=== PATIENT | female | born 1935 | race Caucasian/White ===

== ENCOUNTER 2025-06-02 09:43 | Day surgery (SDC) | payer MEDICARE, OTHER, SELFPAY ==
[2025-06-02 10:44] VITALS: BP 170/96; PULSE 78; RESP 18; TEMP 36.7; O2SAT 96
[2025-06-02] MEDS: LACTATED RINGERS 1,000 ML 42 ML IV (10:51)
--- NOTE | 2025-06-02 11:24 | PM.HP.IH.1 ---
History of Present Illness History of Present Illness Date Patient Seen: 06/02/25 Time Patient Seen: 11:24 Chief complaint: EGD w/poss bx Narrative: Erin is an 89 year old woman with dysphagia and a family history upper GI malignancy. See the April office note for details. [facility] Medical History (Updated 05/11/25 @ 21:35 by Anjali Whalen MD) Vaginal atrophy Cystocele with prolapse Hx of fracture of tibia Macular degeneration Gallstones HTN (hypertension) Memory change Prolapse of female genital organs Incontinence GERD (gastroesophageal reflux disease) Family history- stomach cancer History of bacterial enteritis Surgical History (Updated 03/20/25 @ 18:42 by Anjali Whalen MD) Status post hysterectomy S/P cataract extraction Social History Smoking Status: Never smoker alcohol intake: former additional social history: PMHX: + reflux intestinal infection leaky gut and boils. sometimes get very sick recurrent UTIS- urination all the time-incontinence. HTN -- comes and goes Mac Deg stress bladder hangs down gallstones present 2024 PSHX: cataracts HYST - -- no reason per pt OI: lives with son and his family safe: yes no tob no etoh no other substances exercise: [place] -- cannot go up the hill wants to walk more eats veggies -- but less when she is having GI symptoms drinks ensure at night. last leg xray: 2 yrs ago-fracture of leg 2 years ago 03/2025 Meds Home Medications and Allergies Home Medications ?Medication ?Instructions ?Recorded ?Confirmed ?Type famotidine 20 mg tablet (Pepcid AC) 20 mg PO DAILY 05/02/25 06/02/25 History Allergies Allergy/AdvReac Type Severity Reaction Status Date / Time cimetidine (From Tagamet) AdvReac Severe Swelling Verified 06/02/25 10:38 of the Eye Exam Vital Signs (past 8 hours): - 06/02/25 10:44 Temperature 98.1 F Pulse Rate 78 Respiratory Rate 18 Blood Pressure 170/96 H Pulse Oximetry 96 Oxygen Delivery Method Room Air Oxygen Delivery Method Room Air Const General: No acute distress Assessment & Plan Assessment and plan (1) Dysphagia: Qualifiers: Dysphagia type: unspecified Qualified Code(s): R13.10 - Dysphagia, unspecified Status: Acute Plan EGD Time-Based Coding :: [TOTAL MINUTES] spent with patient and on the chart (including review of chart, obtaining history, exam, reviewing outside data, placing orders, documenting exam and treatment plan, and counseling patient) on [DATE]. 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
--- NOTE | 2025-06-02 11:51 | PM.OP.EGD ---
Operative Date/Time/Diagnoses Date of procedure: 06/02/25 Time of procedure: 11:51 Pre-op diagnosis: Dysphagia Post-op diagnosis: same Procedure & Clinicians Study performed: Esophagogastroduodenoscopy Same procedure(s) as scheduled: Yes Surgeon: Jose Jack Anesthesia Type: MAC +/- Procedure Notes Procedure in detail: Surgeon: Jose Jack MD Anesthesia: Michael Dorman MD A timeout was performed. A bite blocked was placed. The patient was positioned in the left lateral decubitus position. Anesthesia was administered. The endoscope was inserted through the bite block and passed through the esophagus and stomach and into the duodenum. The duodenal mucosa appeared normal. The scope was withdrawn into the duodenal bulb and no abnormalities were seen. The scope was withdrawn into the stomach. No abnormalities were seen in the stomach. The rest of the stomach was normal. The scope was retroflexed and no hiatal hernia was noted. The scope was withdrawn into the esophagus and no gross abnormalities were seen in the esophagus. The scope was withdrawn. The patient was awakened and brought to recovery. Sedation time: 2 minutes Findings: Normal esophagus, stomach and duodenum Estimated Blood Loss: 0 Complications: none Post-procedure Disposition: PACU
[2025-06-02 12:10] VITALS: BP 134/63; PULSE 73; RESP 16; TEMP 36.2; O2SAT 94
[2025-06-02 12:15] VITALS: BP 134/74; PULSE 75; RESP 16; O2SAT 94
[2025-06-02 12:20] VITALS: BP 132/76; PULSE 82; RESP 16; O2SAT 95
== END 2025-06-02 12:36 | disposition home or self-care (01) ==
PROVIDERS: PCP Family Medicine; Referring Provider Surgery; Visit Provider Surgery
PROC: 0DJ08ZZ Inspection of Upper Intestinal Tract, Via Natural or Artificial Opening Endoscopic (ICD-10-PCS; CPT 43235; principal; 2025-06-02 11:30)
DX: R13.10 Dysphagia, unspecified (principal); K21.9 Gastro-esophageal reflux disease without esophagitis; Z80.0 Family history of malignant neoplasm of digestive organs
CPT/HCPCS: 43235; J2704; J3010; J7120

== ENCOUNTER 2025-06-19 20:58 | Emergency (ER) | payer MEDICARE, OTHER, SELFPAY ==
[2025-06-19] VITALS (8 sets, daily range): BP systolic 136–196; BP diastolic 68–90; PULSE 79–103; RESP 16–24; TEMP 36.6; O2SAT 92–96; BMI 29.1
--- NOTE | 2025-06-19 21:06 | EKG_ITS ---
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
--- NOTE | 2025-06-19 21:17 | DI.CT.S_ITS ---
PROCEDURE: CT ANGIO CHEST PE PROTOCOL INDICATIONS: chest/abd pain x6d, started L wraps to R side/front/back TECHNIQUE: After the administration of intravenous contrast, 2 mm thick sections acquired from the pulmonary apices to the posterior costophrenic angles. 3-dimensional maximum intensity projection (MIP) coronal and sagittal reformats were then acquired through the thorax. For radiation dose reduction, the following was used: automated exposure control, adjustment of mA and/or kV according to patient size. COMPARISON: None. FINDINGS: Image quality: Diagnostic. Pulmonary arteries: Pulmonary arteries are normal in size, and demonstrate no intraluminal filling defects to suggest central pulmonary embolism. Lower Neck: No enlarged lymph nodes. Thyroid: Asymmetrically enlarged right thyroid gland with multiple nodules. Largest nodule on the right measures 3.1 cm Axillae: No enlarged lymph nodes. Chest Wall: Unremarkable. Bones: Unremarkable. Lungs and Pleura: No pneumothorax or pleural effusions. No consolidation. Smoothly marginated triangular-shaped subpleural nodule in the left lower lobe measuring up to 10 mm (5/152, MIP image 79) most consistent with a sub fissural lymph node.. Heart: Heart size is normal. No pericardial effusion. Thoracic Vessels: No aortic aneurysm. Mediastinum and Annabelle: No enlarged lymph nodes. Esophagus: No wall thickening. No hiatal hernia. Upper Abdomen: Visualized upper abdomen solid organs and bowel loops appear normal. IMPRESSION: No pulmonary embolus. No acute cardiopulmonary process. Right thyroid gland nodules measuring up to 3.1 cm. Recommend further evaluation with nonemergent thyroid ultrasound if not performed recently. Approved by: Regina Irvin M.D.,Ph.D. on 06/19/2025 at 23:59
--- NOTE | 2025-06-19 21:17 | DI.CT.S_ITS ---
PROCEDURE: CT ABDOMEN PELVIS W CON INDICATIONS: chest/abd pain x6d, started L wraps to R side/front/back TECHNIQUE: After the administration of intravenous contrast, axial sections acquired from the lung bases to the pubic symphysis. Coronal and sagittal reformats were performed. For radiation dose reduction, the following was used: automated exposure control, adjustment of mA and/or kV according to patient size. COMPARISON: None. FINDINGS: Image quality: Diagnostic. Lower Chest: No significant findings. ABDOMEN: Liver: No solid mass. Liver cysts. Gallbladder: Cholelithiasis. Questionable trace pericholecystic fluid near the gallbladder neck. No significant wall thickening. Biliary ducts: No biliary dilation. Pancreas: No ductal dilation. Spleen: Size is within normal limits. Adrenal Glands: No adrenal nodules. Kidneys and Ureters: No hydronephrosis. No solid mass. No complex renal cystic lesion which requires follow up. Stomach and Bowel: Normal colonic caliber, without significant wall thickening. Normal caliber appendix. Sigmoid diverticulosis without acute inflammation. Peritoneum: No abnormal intraperitoneal fluid. No free air. Ventral Wall: No significant ventral hernia. Abdominal Nodes: No retroperitoneal or mesenteric adenopathy by size criteria. Vessels: Aorta and inferior vena cava are normal in size. PELVIS: Pelvic Organs: Surgically absent. Bladder: Cystocele. No bladder wall thickening, accounting for underdistention. Pelvic Nodes: No enlarged lymph nodes. Miscellaneous: No inguinal hernias are seen. Bones: No aggressive osseous abnormality. IMPRESSION: Cholelithiasis with possible trace fluid near the gallbladder neck. No significant wall thickening. If there is clinical concern for acute cholecystitis, consider further evaluation with ultrasound. Sigmoid diverticulosis without CT evidence of acute diverticulitis. Cystocele. Approved by: Regina Irvin M.D.,Ph.D. on 06/19/2025 at 23:39
--- NOTE | 2025-06-19 21:18 | ED.CHESTPAIN ---
HPI - Chest Pain <Anne Rockwell DO - Last Filed: 06/20/25 16:02> General Chief Complaint: Chest Pain Stated Complaint: pc ref abd/back pain x 6 days n/v Time Seen by Provider: 06/19/25 21:16 Source: patient, family, RN notes reviewed, old records reviewed and other (Note from Anjali Whalen) Mode of arrival: Ambulatory Limitations: no limitations History of Present Illness HPI narrative: 89-year-old female history of GERD who presents with complaint of discomfort of her chest and abdomen that is started 6 days ago with some nausea and vomiting. She states it started on her left side lower chest upper abdomen and she states it is a wrapped around to the other side on the right. She states that is sort of intermittent she seems like it is a little bit worse with food. She denies any fevers or chills. She states nausea or vomiting has been intermittent but she has not been eating anything for the past day. She denies any diarrhea or constipation currently but states she has a little bit constipated initially. She has noticed some dysuria, urgency and frequency and has a negative urinalysis which she presents with the results here in the department today. She denies any black or bloody stools. Patient states she has had a prior hysterectomy. She states she takes Pepcid and a probiotic daily she has had prior eye surgery and a hysterectomy. She denies tobacco, alcohol or recreational drugs. Her primary care is on [facility]. PCP is Anjali Whalen. She presents with her son at bedside. Related Data Home Medications ?Medication ?Instructions ?Recorded ?Confirmed famotidine 20 mg tablet (Pepcid AC) 20 mg PO DAILY 05/02/25 06/19/25 Allergies Allergy/AdvReac Type Severity Reaction Status Date / Time cimetidine (From Tagamet) AdvReac Severe Swelling Verified 06/19/25 21:07 of the Eye Review of Systems <Anne Rockwell DO - Last Filed: 06/20/25 16:02> Review of Systems ROS Unobtainable: All systems reviewed & are unremarkable except as noted in HPI and below Patient History <Anne Rockwell DO - Last Filed: 06/20/25 16:02> Medical History (Updated 06/20/25 @ 00:43 by Brady Hernandez MD) Vaginal atrophy Cystocele with prolapse Hx of fracture of tibia Macular degeneration Gallstones HTN (hypertension) Memory change Prolapse of female genital organs GERD (gastroesophageal reflux disease) Family history- stomach cancer Surgical History Status post hysterectomy S/P cataract extraction Social History Smoking Status: Never smoker alcohol intake: former additional social history: PMHX: + reflux intestinal infection leaky gut and boils. sometimes get very sick recurrent UTIS- urination all the time-incontinence. HTN -- comes and goes Mac Deg stress bladder hangs down gallstones present 2024 PSHX: cataracts HYST - -- no reason per pt OI: lives with son and his family safe: yes no tob no etoh no other substances [place]: [place] -- cannot go up the hill wants to walk more eats veggies -- but less when she is having GI symptoms drinks ensure at night. last leg xray: 2 yrs ago-fracture of leg 2 years ago 03/2025 Smoking Status: Never smoker Exam <Anne Rockwell DO - Last Filed: 06/20/25 16:02> Narrative Exam Narrative: GENERAL: Alert and oriented x three, elderly female in mild distress HEENT: Head normocephalic, atraumatic, EOMI, pupils reactive, face symmetric, moist mucous membranes NECK: Supple, full range of motion CARDIOVASCULAR: Regular rate and rhythm without murmurs, rubs or gallops. No JVD. No edema bilateral lower extremities. RESPIRATORY: Breath sounds equal bilaterally, no wheezes rales or rhonchi. No tachypnea. ABDOMEN: Soft, nontender. Normoactive bowel sounds all 4 quadrants. No guarding or rebound, rigidity, no mass, no pulsatile mass or bruit : No CVA tenderness EXTREMITIES: Normal range of motion, no clubbing or edema. 2+ pulses bilateral lower extremities. Neurovascularly intact NEUROLOGICAL: Cranial nerves II through XII grossly intact. Moving all extremities SKIN: Warm, dry, no petechiae, no rashes or lesions. Initial Vital Signs Initial Vital Signs: Vital Signs Temperature 98 F 06/19/25 21:06 Pulse Rate 103 H 06/19/25 21:06 Respiratory Rate 16 11/17/25 21:06 Blood Pressure 136/68 06/19/25 21:06 Pulse Oximetry 96 06/19/25 21:06 Oxygen Delivery Method Room Air 06/19/25 21:06 <Brady Hernandez MD - Last Filed: 06/20/25 02:26> Initial Vital Signs Initial Vital Signs: Vital Signs Temperature 98 F 06/19/25 21:06 Pulse Rate 103 H 06/19/25 21:06 Respiratory Rate 16 06/19/25 21:06 Blood Pressure 136/68 06/19/25 21:06 Pulse Oximetry 96 06/19/25 21:06 Oxygen Delivery Method Room Air 06/19/25 21:06 Course <Anne Rockwell DO - Last Filed: 06/20/25 16:02> Orders Ordered: Discontinued Medications Aspirin (Aspirin 81 Mg Chew Tab) 324 mg PO NOW ONE Stop: 06/19/25 21:06 Last Admin: 06/19/25 21:58 Dose: Not Given Documented By: BUSHRA Sodium Chloride (Normal Saline 0.9%) 500 mls @ 1,000 mls/hr IV BOLUS ONE Stop: 06/19/25 21:47 Last Infusion: 06/19/25 23:02 Dose: Infused Documented By: Admin: 06/19/25 21:40 Dose: 1,000 mls/hr Documented By: REGINO Ondansetron HCl (Ondansetron 4 Mg/2 Ml Inj) 4 mg IV NOW ONE Stop: 06/19/25 21:18 Vital Signs Vital signs: Vital Signs - 8 hr 06/19/25 21:06 06/19/25 21:30 06/19/25 21:30 Temperature 98 F Pulse Rate 103 H 91 H Respiratory Rate 16 21 Blood Pressure 136/68 190/90 H Pulse Oximetry 96 93 Oxygen Delivery Method Room Air 06/19/25 22:00 06/19/25 22:09 06/19/25 22:09 Temperature Pulse Rate 83 83 Respiratory Rate 22 23 Blood Pressure 177/85 H Pulse Oximetry 92 92 Oxygen Delivery Method 06/19/25 22:30 06/19/25 23:00 06/19/25 23:03 Temperature Pulse Rate 80 79 81 Respiratory Rate 17 18 24 Blood Pressure Pulse Oximetry 92 96 94 Oxygen Delivery Method 06/19/25 23:03 06/19/25 23:30 06/20/25 00:00 Temperature Pulse Rate 84 84 Respiratory Rate 24 18 Blood Pressure 196/86 H Pulse Oximetry 92 92 Oxygen Delivery Method 06/20/25 00:01 06/20/25 00:01 06/20/25 00:30 Temperature Pulse Rate 84 80 Respiratory Rate 16 20 Blood Pressure 184/90 H Pulse Oximetry 92 92 Oxygen Delivery Method <Brady Hernandez MD - Last Filed: 06/20/25 02:26> Orders Ordered: Discontinued Medications Aspirin (Aspirin 81 Mg Chew Tab) 324 mg PO NOW ONE Stop: 06/19/25 21:06 Last Admin: 06/19/25 21:58 Dose: Not Given Documented By: BUSHRA Sodium Chloride (Normal Saline 0.9%) 500 mls @ 1,000 mls/hr IV BOLUS ONE Stop: 06/19/25 21:47 Last Infusion: 06/19/25 23:02 Dose: Infused Documented By: Admin: 06/19/25 21:40 Dose: 1,000 mls/hr Documented By: REGINO Ondansetron HCl (Ondansetron 4 Mg/2 Ml Inj) 4 mg IV NOW ONE Stop: 06/19/25 21:18 Vital Signs Vital signs: Vital Signs - 8 hr 06/19/25 21:06 06/19/25 21:30 06/19/25 21:30 Temperature 98 F Pulse Rate 103 H 91 H Respiratory Rate 16 21 Blood Pressure 136/68 190/90 H Pulse Oximetry 96 93 Oxygen Delivery Method Room Air 06/19/25 22:00 06/19/25 22:09 06/19/25 22:09 Temperature Pulse Rate 83 83 Respiratory Rate 22 23 Blood Pressure 177/85 H Pulse Oximetry 92 92 Oxygen Delivery Method 06/19/25 22:30 06/19/25 23:00 06/19/25 23:03 Temperature Pulse Rate 80 79 81 Respiratory Rate 17 18 24 Blood Pressure Pulse Oximetry 92 96 94 Oxygen Delivery Method 06/19/25 23:03 06/19/25 23:30 06/20/25 00:00 Temperature Pulse Rate 84 84 Respiratory Rate 24 18 Blood Pressure 196/86 H Pulse Oximetry 92 92 Oxygen Delivery Method 06/20/25 00:01 06/20/25 00:01 06/20/25 00:30 Temperature Pulse Rate 84 80 Respiratory Rate 16 20 Blood Pressure 184/90 H Pulse Oximetry 92 92 Oxygen Delivery Method MDM - Chest Pain <Anne Rockwell, - Last Filed: 06/20/25 16:02> Lab Data 06/19/25 22:00 06/19/25 22:00 Labs: Lab Results 06/19/25 Range/Units 22:00 WBC 7.9 (4.5-11.0) X10^3/uL RBC 4.73 (4.0-5.2) X10^6/uL Hgb 13.2 (12.0-16.0) g/dL Hct 39.5 (36-46) % MCV 83.6 (80-100) fL MCH 28.0 (26-34) PG MCHC 33.5 (30-36) % RDW 13.6 (11.6-14.8) % Plt Count 230 (150-400) X10^3/uL Neut % (Auto) 69.1 (50-75) % Lymph % (Auto) 19.4 L (25-40) % [place] % (Auto) 10.0 (3-14) % Eos % (Auto) 1.0 L (2-4) % Baso % (Auto) 0.5 (0-2) % Neut # (Auto) 5500 (2005-2755) /uL Lymph # (Auto) 1500 (9262-6208) /uL [place] # (Auto) 800 (0-900) /uL Eos # (Auto) 100 (0-450) /uL Baso # (Auto) 0 (0-100) /uL PT 13.0 H (9.4-12.5) SECONDS INR 1.1 (0.9-1.3) APTT 36 (25.1-36.5) SECONDS Sodium 139 (137-145) mmol/L Potassium 3.6 (3.4-5.1) mmol/L Chloride 104 (98-107) mmol/L Carbon Dioxide 23 (22-32) mmol/L BUN 13 (7-17) mg/dL Creatinine 0.59 (0.52-1.04) mg/dL Estimated GFR > 60 (>60) mL/min BUN/Creatinine Ratio 22.0 (6-22) Glucose 98 (70-99) mg/dL Calcium 9.1 (8.4-10.2) mg/dL Magnesium 1.9 (1.6-2.3) mg/dL Total Bilirubin 0.5 (0.2-1.3) mg/dL AST 24 (14-36) IU/L ALT 17 (<35) IU/L Alkaline Phosphatase 99 (38-126) U/L Total Creatine Kinase 42 (30-135) U/L Troponin I < 0.012 (0.01-0.034) ng/mL NT-Pro-B Natriuret Pep 105 (<450) pg/mL Total Protein 7.8 (6.3-8.2) g/dL Albumin 4.4 (3.5-5.0) g/dL Globulin 3.4 (1.7-4.1) g/dL Albumin/Globulin Ratio 1.3 (1.0-2.8) Lipase 23 (23-300) U/L MDM Narrative Medical decision making narrative: EKG shows sinus tachycardia rate of 102 MI 170 QRS 80 QTC of [address]-elevation depression noted. No prior in EMR for comparison. Labs show normal white count, hemoglobin and platelets, INR is normal, electrolytes BUN and creatinine are normal troponins less than 0.012 with a BNP of 105, lipase is 23 Urinalysis from [address] abdomen pelvis CT chest PE protocol Patient received Zofran and fluids <Brady Hernandez MD - Last Filed: 06/20/25 02:26> Lab Data Labs: Lab Results 06/19/25 Range/Units 22:00 WBC 7.9 (4.5-11.0) X10^3/uL RBC 4.73 (4.0-5.2) X10^6/uL Hgb 13.2 (12.0-16.0) g/dL Hct 39.5 (36-46) % MCV 83.6 (80-100) fL MCH 28.0 (26-34) PG MCHC 33.5 (30-36) % RDW 13.6 (11.6-14.8) % Plt Count 230 (150-400) X10^3/uL Neut % (Auto) 69.1 (50-75) % Lymph % (Auto) 19.4 L (25-40) % [place] % (Auto) 10.0 (3-14) % Eos % (Auto) 1.0 L (2-4) % Baso % (Auto) 0.5 (0-2) % Neut # (Auto) 5500 (5689-0118) /uL Lymph # (Auto) 1500 (1524-3210) /uL [place] # (Auto) 800 (0-900) /uL Eos # (Auto) 100 (0-450) /uL Baso # (Auto) 0 (0-100) /uL PT 13.0 H (9.4-12.5) SECONDS INR 1.1 (0.9-1.3) APTT 36 (25.1-36.5) SECONDS Sodium 139 (137-145) mmol/L Potassium 3.6 (3.4-5.1) mmol/L Chloride 104 (98-107) mmol/L Carbon Dioxide 23 (22-32) mmol/L BUN 13 (7-17) mg/dL Creatinine 0.59 (0.52-1.04) mg/dL Estimated GFR > 60 (>60) mL/min BUN/Creatinine Ratio 22.0 (6-22) Glucose 98 (70-99) mg/dL Calcium 9.1 (8.4-10.2) mg/dL Magnesium 1.9 (1.6-2.3) mg/dL Total Bilirubin 0.5 (0.2-1.3) mg/dL AST 24 (14-36) IU/L ALT 17 (<35) IU/L Alkaline Phosphatase 99 (38-126) U/L Total Creatine Kinase 42 (30-135) U/L Troponin I < 0.012 (0.01-0.034) ng/mL NT-Pro-B Natriuret Pep 105 (<450) pg/mL Total Protein 7.8 (6.3-8.2) g/dL Albumin 4.4 (3.5-5.0) g/dL Globulin 3.4 (1.7-4.1) g/dL Albumin/Globulin Ratio 1.3 (1.0-2.8) Lipase 23 (23-300) U/L Imaging Data CT scan - abdomen/pelvis: Radiologist's Impression: IMPRESSION: Cholelithiasis with possible trace fluid near the gallbladder neck. No significant wall thickening. If there is clinical concern for acute cholecystitis, consider further evaluation with ultrasound. Sigmoid diverticulosis without CT evidence of acute diverticulitis. Cystocele. MDM Narrative Medical decision making narrative: EKG shows sinus tachycardia rate of 102 MI 170 QRS 80 QTC of [address]-elevation depression noted. No prior in EMR for comparison. Labs show normal white count, hemoglobin and platelets, INR is normal, electrolytes BUN and creatinine are normal troponins less than 0.012 with a BNP of 105, lipase is 23 Urinalysis from [address] abdomen pelvis CT chest PE protocol Patient received Zofran and fluids 23:00 Patient care transferred to [place] at the change of shift by Dr. Garcia with CTA chest and CT abdomen and pelvis pending. This is a 89-year-old female patient with a history of hypertension, GERD and bladder and/or cervical prolapse who presents with left-sided lower chest and left upper quadrant abdominal pain waxing and waning for 6 days with a few episodes of nausea and vomiting. Decreased appetite. No fever or chills. To this point she has had CBC and chemistry panel which are unremarkable. Urinalysis done earlier today was negative. She has had CTA chest and CT abdomen and pelvis which are not yet read. 00:40 Patient's CTA chest and CT abdomen and pelvis are negative not explaining her pain. Lab work is negative. There was some concern about her gallstones but she has no elevated white count or lab work in regard to her gallbladder. On my history and exam this appears to be a neuropathic pain. It was a burning pain across her lower chest and back and upper quadrant. However, no rash suggestive of zoster. Patient is to monitor symptoms and follow up with her doctor as needed. Return to the ER if worse. Discharge Plan Departure Patient Disposition: Home Clinical Impression: Atypical chest pain, Left upper quadrant pain Instructions: Acute Abdominal Pain, DI for Atypical Chest Pain Activity Restrictions/Additional Instructions: Assessment: Left chest and upper quadrant pain with negative lab work and imaging. Does not appear to be surgical or cardiac. Also not pulmonary. Possible neuropathic pain. Plan: Hydration, rest and monitor symptoms. Follow up with your doctor for reassessment if not resolving. Return to the ER if worse Prescriptions: No Action famotidine [Pepcid AC] 20 mg tablet 20 mg PO DAILY Referrals: Anjali Whalen MD [Primary Care Provider, Family Practice] Stand Alone Forms: Patient Portal/API
[2025-06-19] MEDS: SODIUM CHLORIDE 0.9% 500 ML 1000 ML IV (21:40)
[2025-06-19 22:18] LABS: Add Manual Diff / Slide Review NO; Hematocrit 39.5 % (36-46); Hemoglobin 13.2 g/dL (12.0-16.0); Lymphocytes Absolute Auto 1500 /uL (1100-4500); Mean Corpuscular HGB Conc 33.5 % (30-36); Mean Corpuscular Hemoglobin 28.0 PG (26-34); Mean Corpuscular Volume 83.6 fL (80-100); Platelet Count 230 X10^3/uL (150-400)
[2025-06-19 22:24] LABS: INR 1.1 (0.9-1.3); Prothrombin Time 13.0 SECONDS (9.4-12.5)
[2025-06-19 22:26] LABS: PTT Partial Thromboplastin Tim 36 SECONDS (25.1-36.5)
[2025-06-19 22:29] LABS: Alanine Aminotransferase 17 IU/L (<35); Albumin 4.4 g/dL (3.5-5.0); Albumin Globulin Ratio 1.3 (1.0-2.8); Alkaline Phosphatase 99 U/L (38-126); Blood Urea Nitrogen 13 mg/dL (7-17); Calcium 9.1 mg/dL (8.4-10.2); Carbon Dioxide 23 mmol/L (22-32); Chloride 104 mmol/L (98-107); Creatine Kinase 42 U/L (30-135); Estimated Glomerular Filt Rate > 60 mL/min (>60); Globulin 3.4 g/dL (1.7-4.1); Glucose 98 mg/dL (70-99); HEMOLYSIS < 15 (0-50); Lipase 23 U/L (23-300); Magnesium 1.9 mg/dL (1.6-2.3); Potassium 3.6 mmol/L (3.4-5.1); Sodium 139 mmol/L (137-145); Total Protein 7.8 g/dL (6.3-8.2)
[2025-06-19 22:40] LABS: NT-proBNP (BNP-Adult 18+) 105 pg/mL (<450); Troponin I < 0.012 ng/mL (0.01-0.034)
[2025-06-20] VITALS: PULSE 84; RESP 18; O2SAT 92
[2025-06-20 00:01] VITALS: BP 184/90; PULSE 84; RESP 16; O2SAT 92
[2025-06-20 00:30] VITALS: PULSE 80; RESP 20; O2SAT 92
== END 2025-06-20 01:01 | disposition home or self-care (01) ==
PROVIDERS: Emergency Medicine; Emergency Provider Emergency Medicine; PCP Family Medicine
DX: R07.89 Other chest pain (principal); R10.32 Left lower quadrant pain; I10 Essential (primary) hypertension; R30.0 Dysuria; R11.2 Nausea with vomiting, unspecified
CPT/HCPCS: 36415; 71275; 74177; 80053; 82550; 83690; 83735; 83880; 84484; 85025; 85610; 85730; 87086; 93005; 93010; 96360; 99284; J7040; Q9967

== ENCOUNTER → 2025-07-19 09:56 | Outpatient (CLI) | payer MEDICARE, OTHER, SELFPAY ==
--- NOTE | 2025-07-19 09:57 | DI.US.S_ITS ---
PROCEDURE: US THYROID INDICATIONS: ABNORMAL CT CHEST - THRYOID NODULES TECHNIQUE: Real-time scanning was performed of the thyroid gland, with image documentation. COMPARISON: [facility], CT, CT ANGIO CHEST PE PROTOCOL, 06/19/2025, 21:23. FINDINGS: Thyroid: Right lobe measures 7.3 x 3.5 x 3.9 cm. Left lobe measures 5.2 x 1.7 x 1.3 cm. Isthmus is 7.2 cm thick. Echotexture is heterogeneous. Nodule number: 1 Location: Right mid inferior Size: 4.6 x 3.9 x 2.8 cm. Composition: Solid Echogenicity: Hypoechoic Shape: wider than tall. Margins: Smooth Echogenic foci: None Total points: 4 ACR TI-RADS category: 4 Nodule number: 2 Location: Left superior Size: 1.3 x 1.0 x 1.0 cm. Composition: Solid Echogenicity: Hypoechoic Shape: wider than tall. Margins: Smooth Echogenic foci: None Total points: 4 ACR TI-RADS category: 4 Nodule number: 3 Location: Isthmus Size: 1.7 x 1.5 x 0.6 cm. Composition: Solid Echogenicity: Hypoechoic Shape: wider than tall. Margins: Smooth Echogenic foci: none Total points: 4 ACR TI-RADS category: 4 Nodule number: 4 Location: Isthmus Size: 1.5 x 1.2 x 0.6 cm. Composition: Solid Echogenicity: Hypoechoic Shape: wider than tall. Margins: Smooth Echogenic foci: none Total points: 4 ACR TI-RADS category: 4 IMPRESSION: All lesions are considered category 4. FNA is recommended within lesions 1 and 3. Interval imaging follow-up for lesions 2 in 4. ACR TI-RADS definitions and recommendations: TI-RADS 1 (benign): 0 points. FNA not needed. TI-RADS 2 (not suspicious): 2 points. FNA not needed. TI-RADS 3: 3 points. * FNA if 2.5 cm or larger, follow up if 1.5 cm or larger (at 1, 3, and 5 years). TI-RADS 4: 4-6 points. * FNA if 1.5 cm or larger, follow up if 1 cm or larger (at 1, 2, 3, and 5 years). TI-RADS 5: 7 points or more. * FNA if 1 cm or larger, follow up if 0.5 cm or larger (every year for 5 years). Dictated by: Padmini Aguilar M.D. on 07/19/2025 at 17:24 Approved by: Padmini Aguilar M.D. on 07/19/2025 at 17:26
--- NOTE | 2025-07-19 09:57 | DI.US.S_ITS ---
PROCEDURE: US ABDOMEN LIMITED INDICATIONS: RIGHT UPPER QUADRANT PAIN. ABNORMAL CT TECHNIQUE: Real-time scanning was performed of the abdominal and retroperitoneal organs, with image documentation. COMPARISON: [facility], CT, CT ANGIO CHEST PE PROTOCOL, 06/19/2025, 21:23. FINDINGS: Liver: Liver is normal in size and simple right lobe cyst measuring 2.0 x 2.2 x 1.0 cm. Gallbladder: Sludge and stones are present largest stone measuring 1.7 cm. Wall thickness is normal measuring 1.6 mm. No pericholecystic fluid. Biliary ducts: Intrahepatic bile ducts are non-dilated. Extrahepatic bile duct caliber measures 3.8 mm. Normal is 6-7 mm or less in diameter, or 10 mm or less post-cholecystectomy. Pancreas: Visualized portions of the pancreas are sonographically normal. Miscellaneous: No free abdominal fluid. IMPRESSION: Cholelithiasis without appearance of cholecystitis. Dictated by: Padmini Aguilar M.D. on 07/19/2025 at 17:26 Approved by: Padmini Aguilar M.D. on 07/19/2025 at 17:27
== END ==
LOC: US 09:57
PROVIDERS: PCP Family Medicine; Referring Provider Family Medicine; Visit Provider Family Medicine
DX: R10.9 Unspecified abdominal pain (principal); K80.20 Calculus of gallbladder without cholecystitis without obstruction; E04.2 Nontoxic multinodular goiter; K76.89 Other specified diseases of liver
CPT/HCPCS: 76536; 76705